=== PATIENT | male | born 1985 | race Caucasian/White ===

== ENCOUNTER 2023-04-20 14:46 | Inpatient (IN) | payer BC, SELFPAY ==
--- NOTE | 2023-04-20 14:50 | XR_ITS ---
WS: [id number] Exam: XR chest 1V portable [id number] Date/Time of Exam: 04/20/2023 2:58 PM Reason For Exam: fever No priors. There is consolidating pneumonia in the middle lobe of the RIGHT lung. The LEFT lung is clear. No ple ural effusions or pneumothorax. Normal cardiomediastinal silhouette. IMPRESSION: 1. Consolidating pneumonia of the RIGHT middle lobe.
[2023-04-20 15:09] VITALS: BP 94/63; PULSE 122; RESP 28; TEMP 39.3; O2SAT 98; BMI 24.3
[2023-04-20 15:33] VITALS: O2SAT 97
[2023-04-20 15:35] VITALS: BP 109/63; PULSE 114; RESP 24; O2SAT 97
--- NOTE | 2023-04-20 15:37 | ED_ITS ---
HPI - COVID 2 General: Chief Complaint: COVID symptoms Stated Complaint: Cough , Fever, weakness Time Seen by Provider: 04/20/23 15:32 Source: patient Mode of arrival: ambulatory Limitations: no limitations History of Present Illness: 38-year-old male states that he had coug h congestion along with shortness of breath and fevers over the last 2 to 3 days. States it is worsening he states he feel like he cannot breathe today denies any vomiting or diarrhea no known sick contacts. He is a smoker. COVID 19 common symptoms: positive fever(s), non-productive cough, dyspnea and body aches; negative chills, headache(s), throat pain, nausea, vomiting or diarrhea COVID 19 other sytmptoms: negative chest pain COVID Results: 2 SARS-CoV-2 Antigen (Rapid) negative (Negative) 04/20/23 15:35 Review of Systems 2 Const: Reports: fever(s) and body aches; Denies: chills or change in appetite ENMT: Denies: throat pain or dental pain Card: Denies: chest pain Resp: Reports: dyspnea and non-productive cough GI: Denies: abdominal pain, nausea, vomiting or diarrhea Musc: Denies: neck pain or back pain Skin/Breast: Denies: rash Neuro: Denies: headache(s) Physical Exam 2 Const: COMMON NORMALS: patient oriented x3 GENERAL APPEARANCE: ill appearing HENMT: COMMON NORMALS: normocephalic and atraumatic HEAD & SCALP: n ormocephalic and atraumatic Neck/C-Spine: COMMON NORMALS: full ROM and supple Chest: COMMONS NORMALS: normal inspection of the chest and normal palpation of entire chest wall Resp: COMMON NORMALS: No retractions EFFORT & INSPECTION: Yes tachypneic and Yes respiratory distress AUSCULTATION: crackles Laterality: right Cardio: COMMON NORMALS: regular rhythm and No murmurs present (Cardio) R ATE: tachycardic RHYTHM: regular rhythm GI: COMMON NORMALS: Normal to inspection, nondistended, normoactive bowel sounds present, Soft to palpation, non-tender and no masses PALPATION: Yes Soft to palpation Extremity: COMMON NORMALS: normal to inspection and full ROM Neuro: COMMON NORMALS: patient oriented x3, moves all extremities and no focal motor deficits Psych: COMMON NORMALS: mental status grossly normal, Normal thought process present and cooperative THOUGHT PROCESS: Normal thought process present Skin: COMMON NORMALS: no rashes or lesions noted and no wounds GENERAL SKIN EXAM: no rashes or lesions noted Course 2 Vital Signs: Vital signs: Vital Signs Temperature 102.7 F H 04/20/23 15:09 Pulse Rate 114 H 04/20/23 15:35 Respiratory Rate 24 H 04/20/23 15:35 Blood Pressure 109/63 04/20/23 15:35 Pulse Oximetry 97 04/20/23 15:35 Oxygen Delivery Me thod Room Air 04/20/23 15:35 MDM - COVID Medical Decision Making Patient presents here with pneumonia he is febrile here as well with an elevated white count. Did give patient IV fluids start him on IV antibiotics lactate here was normal spoke to hospitalist will admit at this time. Medical Records I reviewed the patient's medical records. Lab Data I reviewed the patient's lab results. 04/20/23 15:43 04/20/23 15:43 Laboratory Results WBC 22.97 10^3/uL (3.29-11.43) H 04/20/23 15:43 RBC 4.62 10^6/uL (3.85-5.65) 04/20/23 15:43 Hgb 14.30 g/dL (11.27-16.99) 04/20/23 15:43 Hct 40.2 % (37-53) 04/20/23 15:43 MCV 87.0 fl (82-101) 04/20/23 15:43 MCH 31.0 pg (27-33) 04/20/23 15:43 MCHC 35.6 g/dL (30-55) 04/20/23 15:43 RDW 12.4 % (12.1-15.1) 04/20/23 15:43 Plt Count 258 10^3/cmm (157-399) 04/20/23 15:43 MPV 11.0 fL (7.4-10.4) H 04/20/23 15:43 Neut % (Auto) 89.1 % 04/20/23 15:43 Lymph % (Auto) 3.2 % 04/20/23 15:43 [place] % (Auto) 6.2 % 04/20/23 15:43 Eos % (Auto) 0.0 % 04/20/23 15:43 Baso % (Auto) 0.3 % 04/20/23 15:43 Neut # (Auto) 20.43 10^3/uL (1.8-7.7) H 04/20/23 15:43 Lymph # (Auto) 0.7 10^3/uL (0.8-4.8) L 04/20/23 15:43 [place] # (Auto) 1.4 10^3/uL (0.2-0.9) H 04/20/23 15:43 Eos # (Auto) 0.0 10^3/uL (0.0-0.8) 04/20/23 15:43 Baso # (Auto) 0.1 10^3/uL (0.0-0.1) 04/20/23 15:43 Nucleated RBC % (auto) 0 % 04/20/23 15:43 Nucleated RBCs # 0.0 /100WBC 04/20/23 15:43 Sodium 131 mmol/L (136-145) L 04/20/23 15:43 Potassium 3.7 mmol/L (3.5-5.1) 04/20/23 15:43 Chloride 95 mmol/L (98-107) L 04/20/23 15:43 Carbon Dioxide 21 mmol/L (22-29) L 04/20/23 15:43 Anion Gap 18.7 (5-19) 04/20/23 15:43 BUN 27 mg/dL (6-20) H 04/20/23 15:43 Creatinine 1.0 mg/dL (0.7-1.2) 04/20/23 15:43 GFR Calculation 84.5 mL/min (90-130) L 04/20/23 15:43 Glucose 133 mg/dL (65-115) H 04/20/23 15:43 Calculated Osmolality 279 mOsm/kg (285-295) L 04/20/23 15:43 Lactic Acid 1.7 mmol/L (0.5-2.2) 04/20/23 15:43 Calcium 9.1 mg/dL (8.5-10.5) 04/20/23 15:43 Total Bilirubin 0.9 mg/dL (0.15-1.2) 04/20/23 15:43 AST 17 U/L (0-40) 04/20/23 15:43 ALT 18 U/L (0-41) 04/20/23 15:43 Alkaline Phosphatase 123 U/L (40-130) 04/20/23 15:43 Total Protein 7.2 g/dL (6.6-8.7) 04/20/23 15:43 Albumin 3.5 g/dL (3.5-5.2) 04/20/23 15:43 Globulin 3.7 g/dL (1.3-4.6) 04/20/23 15:43 Influenza Type A Ag negative (Negative) 04/20/23 15:35 Influenza Type B Ag negative (Negative) 04/20/23 15:35 SARS-CoV-2 Ag (Rapid) negative (Negative) 04/20/23 15:35 2 SARS-CoV-2 Antigen (Rapid) negative (Negative) 04/20/23 15:35 All radiology interpretation(s) finalized by discharge Discharge Plan Discharge Patient Disposition: Admitted As Inpatient Clinical Impression: Pneumonia Condition: Stable Coding Level of Care Code ED Despatching And Receiving Clerk for Jose Kay
--- NOTE | 2023-04-20 15:43 | PC.NURSE ---
Pt placed on bedside cardiac monitor technician
[2023-04-20 15:55] LABS: Basophils # 0.1 10^3/uL (0.0-0.1); Basophils % 0.3 %; Hematocrit 40.2 % (37-53); Lymphocytes # 0.7 10^3/uL (0.8-4.8); Lymphocytes % 3.2 %; Mean Corpuscular HGB Conc 35.6 g/dL (30-55); Monocytes # 1.4 10^3/uL (0.2-0.9); Monocytes % 6.2 %; Neutrophils # 20.43 10^3/uL (1.8-7.7); Neutrophils % 89.1 %; Nucleated Red Blood Cells % 0 %; Platelet Count 258 10^3/cmm (157-399); Red Blood Count 4.62 10^6/uL (3.85-5.65); Red Cell Distribution Width 12.4 % (12.1-15.1); White Blood Count 22.97 10^3/uL (3.29-11.43)
[2023-04-20] MEDS: sodium chloride 0.9% 2,245.29 ML 2245.29 ML IV (15:56)
[2023-04-20] MEDS: acetaminophen 500 mg Tablet 1000 MG PO (15:56)
[2023-04-20] MEDS: levofloxacin-dextrose 5 % 750 MG/150 ML PREMIX 100 MG IV (15:57)
[2023-04-20 16:12] LABS: Alanine Aminotransferase 18 U/L (0-41); Albumin Level 3.5 g/dL (3.5-5.2); Alkaline Phosphatase 123 U/L (40-130); Anion Gap 18.7 (5-19); Aspartate Amino Transferase 17 U/L (0-40); Blood Urea Nitrogen 27 mg/dL (6-20); Calcium 9.1 mg/dL (8.5-10.5); Carbon Dioxide 21 mmol/L (22-29); Chloride 95 mmol/L (98-107); Globulin 3.7 g/dL (1.3-4.6); Glomerular Filtration Rate 84.5 mL/min (90-130); Glucose 133 mg/dL (65-115); Lactic Sepsis W/Reflex 1.7 mmol/L (0.5-2.2); Osmolality Calculated 279 mOsm/kg (285-295); Potassium 3.7 mmol/L (3.5-5.1); Sodium 131 mmol/L (136-145); Total Bilirubin 0.9 mg/dL (0.15-1.2); Total Protein 7.2 g/dL (6.6-8.7)
[2023-04-20 16:15] LABS: Influenza A by IFA negative (Negative); Influenza B by IFA negative (Negative)
[2023-04-20 16:16] LABS: SARS Covid-2 Antigen negative (Negative)
[2023-04-20 17:55] LABS: Lactic Sepsis W/Reflex 1.3 mmol/L (0.5-2.2)
[2023-04-20 18:00] LABS: Procalcitonin 3.83 ng/mL (0-0.5)
--- NOTE | 2023-04-20 18:25 | PM.HP ---
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 Patient meets SIRS criteria for tachypnea tachycardia leukocytosis, lactic acid normal, Review of Systems Const: Reports: fever(s), chills and fatigue Eyes: Denies: change in vision ENMT: Denies: throat pain Card: Denies: chest pain Resp: Reports: dyspnea GI: Denies: abdominal pain : Denies: flank pain Musc: Denies: neck pain Skin/Breast: Denies: rash Neuro: Denies: headache(s) Psych: Reports: anxiety Medications/Allergies Allergies Allergy/AdvReac Type Severity Reaction Status Date / Time Penicillins Allergy ALGY-Anaphy Verified 04/20/23 15:08 laxis Vitals/I&O/Wt Last Vital Signs Temp 102.7 F H 04/20/23 15:09 Pulse 114 H 04/20/23 15:35 Resp 24 H 04/20/23 15:35 BP 109/63 04/20/23 15:35 Pulse Ox 97 04/20/23 15:35 O2 Del Method Room Air 04/20/23 15:35 Weight last 48 hrs Weight 74.843 kg Physical Exam Narrative: Awake and alert GCS 15 Currently on room air Experiencing rigors and chills Nonfocal neuroexam No audible stridor or wheezing No active chest pain S1, S2 Pleasant cooperative Data 04/20/23 15:43 04/20/23 15:43 A&P Assessment and plan (1) Pneumonia: Qualifiers: Laterality: left Lung location: lower lobe of lung Pneumonia type: due to unspecified organism Qualified Code(s): J18.9 - Pneumonia, unspecified organism Plan Sepsis with pneumonia Fever at home SIRS criteria met with tachypnea tachycardia leukocytosis lactic acid normal Continue IV fluids 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
[2023-04-20 18:38] VITALS: BP 116/61; TEMP 36.8
[2023-04-20 19:40] VITALS: BP 97/65; PULSE 82; RESP 18; TEMP 36.7; O2SAT 98
[2023-04-20] MEDS: sodium chloride 0.9% 1,000 ML 75 ML IV (20:14)
[2023-04-20] MEDS: ibuprofen 200 mg Tablet 400 MG PO (20:15)
[2023-04-20 20:16] LABS: HIV 1 & 2 Antibody Non-Reactive (Non-Reactiv); HIV 1 & 2 Antigen Non-Reactive (Non-Reactiv)
[2023-04-20 21:08] VITALS: BMI 26.7
[2023-04-20 21:14] LABS: Hepatitis A Antibody IgM Non-Reactive (Nonreactive); Hepatitis B Core AB, Total Reactive (Nonreactive); Hepatitis B Surface Antigen Non-Reactive (Nonreactive); Hepatitis C Virus Antibody Non-Reactive (Nonreactive)
[2023-04-21] VITALS (10 sets, daily range): BP systolic 97–108; BP diastolic 62–68; PULSE 73–96; RESP 16–21; TEMP 36.7–37.7; O2SAT 94–99; BMI 26.7
[2023-04-21 00:43] LABS: Adenovirus Not Detected (NOT DETECT); Chlamydia Pneumoniae Not Detected (NOT DETECT); Coronavirus 229E,HKU1,NL63,OC4 Not Detected (NOT DETECT); Human Metapneumovirus Not Detected (NOT DETECT); Human Rhinovirus/Enterovirus Not Detected (NOT DETECT); Influenza A Not Detected (NOT DETECT); Influenza A H1 Not Detected (NOT DETECT); Influenza A H1-2009 Not Detected (NOT DETECT); Influenza A H3 Not Detected (NOT DETECT); Influenza B Not Detected (NOT DETECT); Mycoplasma Pneumoniae Not Detected (NOT DETECT); Parainfluenza Virus Type 1 Not Detected (NOT DETECT); Parainfluenza Virus Type 2 Not Detected (NOT DETECT); Parainfluenza Virus Type 3 Not Detected (NOT DETECT); Parainfluenza Virus Type 4 Not Detected (NOT DETECT); Respiratory Syncytial Virus A Not Detected (NOT DETECT); Respiratory Syncytial Virus B Not Detected (NOT DETECT); SARS-COV-2 Not Detected (NOT DETECT)
[2023-04-21] MEDS: acetaminophen 325 mg Tablet 650 MG PO (01:03)
[2023-04-21] MEDS: hyDROXYzine 25 mg Capsule PO (01:03)
[2023-04-21] MEDS: morphine 4 mg/mL SDV 1 mL 1 MG IVP ×2 (05:22→22:18)
[2023-04-21 05:35] LABS: Basophils % 0.2 %; Eosinophils % 0.1 %; Hematocrit 37.7 % (37-53); Lymphocytes # 1.6 10^3/uL (0.8-4.8); Mean Corpuscular HGB Conc 34.2 g/dL (30-55); Mean Corpuscular Hemoglobin 30.6 pg (27-33); Mean Corpuscular Volume 89.5 fl (82-101); Mean Platelet Volume 10.4 fL (7.4-10.4); Monocytes # 1.8 10^3/uL (0.2-0.9); Monocytes % 9.2 %; Neutrophils # 16.11 10^3/uL (1.8-7.7); Neutrophils % 81.6 %; Nucleated Red Blood Cells % 0 %; Platelet Count 252 10^3/cmm (157-399); Red Blood Count 4.21 10^6/uL (3.85-5.65); Red Cell Distribution Width 12.8 % (12.1-15.1); White Blood Count 19.75 10^3/uL (3.29-11.43)
[2023-04-21 05:52] LABS: Alanine Aminotransferase 18 U/L (0-41); Albumin Level 2.8 g/dL (3.5-5.2); Alkaline Phosphatase 106 U/L (40-130); Anion Gap 16.6 (5-19); Aspartate Amino Transferase 19 U/L (0-40); Blood Urea Nitrogen 15 mg/dL (6-20); Calcium 8.1 mg/dL (8.5-10.5); Carbon Dioxide 20 mmol/L (22-29); Chloride 107 mmol/L (98-107); Glomerular Filtration Rate 188.1 mL/min (90-130); Glucose 98 mg/dL (65-115); Magnesium 2.5 mg/dL (1.7-2.3); Osmolality Calculated 291 mOsm/kg (285-295); Potassium 3.6 mmol/L (3.5-5.1); Sodium 140 mmol/L (136-145); Total Bilirubin 0.4 mg/dL (0.15-1.2); Total Protein 5.8 g/dL (6.6-8.7)
--- NOTE | 2023-04-21 08:00 | ECG_ITS ---
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 Measurements Intervals [place] Rate: 95 P: 21 GA: 141 QRS: 45 QRSD: 86 T: 19 QT: 327 QTc: 412 Interpretive Statements SINUS RHYTHM No previous ECG available for comparison Electronically Signed On 04-21-2023 14:19:05 RACK CLEANER by Carlitos Rice M.D. [id number]
[2023-04-21] MEDS: sodium chloride 0.9% 1,000 ML 75 ML IV (08:14)
[2023-04-21] MEDS: doxycycline 100 mg Tablet PO ×2 (08:14→17:25)
[2023-04-21] MEDS: levofloxacin-dextrose 5 % 750 MG/150 ML PREMIX 100 MG IV (08:15)
[2023-04-21 08:20] LABS: Procalcitonin 2.88 ng/mL (0-0.5)
[2023-04-21] MEDS: ibuprofen 200 mg Tablet 400 MG PO (12:08)
--- NOTE | 2023-04-21 14:53 | P.PN_ITS ---
Subjective 2 Subjective: Seen today. Appears toxic and ill. Vitals/I&O/Wt Last Vital Signs Temp 99.3 F 04/21/23 12:00 Pulse 91 04/21/23 12:00 Resp 16 04/21/23 12:00 BP 97/62 04/21/23 12:00 Pulse Ox 96 04/21/23 12:00 O2 Del Method Room Air 04/21/23 09:58 04/20/23 04/21/23 04/21/23 22:59 06:59 14:59 Intake Total 2895.29 / 2895.29 1410 / 1410 Output Total 400 / 400 Balance 2895.29 / 2895.29 -400 / 2495.29 1410 / 1410 Weight last 48 hrs Weight 82.1 kg Weight 82.1 kg Weight 74.843 kg Physical Exam 2 Narrative: Awake and alert GCS 15 Currently on room air Experiencing rigors and chills Nonfocal neuroexam No audible stridor or wheezing No active chest pain S1, S2 Pleasant cooperative Appears ill and toxic Lungs have sporadic rhonchi bilaterally Data 04/21/23 05:18 04/21/23 05:18 A&P Assessment and plan (1) Pneumonia: Qualifiers: Laterality: left Lung location: lower lobe of lung Pneumonia type: due to unspecified organism Qualified Code(s): J18.9 - Pneumonia, unspecified organism Plan Sepsis with pneumonia Fever at home SIRS criteria met with tachypnea tachycardia leukocytosis lactic acid normal Continue IV fluids 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 Continue to treat patient in hospital with IV antibiotics ? Procalcitonin 2.88. Will trend I expect patient to stay in the hospital at least another 48 hours. Patient to remain on IV antibiotics until procalcitonin down to normal. Full code Regular diet Attestations 2 Medical Necessity Statement*: Anticipating more than 2 midnights for management of sepsis related to pneumonia Diagnoses Pneumonia J18.9 Laterality: left Lung location: lower lobe of lung Pneumonia type: due to unspecified organism
[2023-04-21] MEDS: sodium chloride 0.9% 1,000 ML 999 ML IV (16:46)
[2023-04-21] MEDS: ketorolac 30 mg/mL INJ 15 MG IVP (16:52)
[2023-04-21] MEDS: sodium chloride 0.9% 1,000 ML 125 ML IV (22:17)
[2023-04-22] VITALS (8 sets, daily range): BP systolic 115–134; BP diastolic 69–84; PULSE 46–89; RESP 15–20; TEMP 36.4–37.1; O2SAT 96–100
[2023-04-22] MEDS: hyDROXYzine 25 mg Capsule PO (01:15)
[2023-04-22 05:44] LABS: Basophils # 0.1 10^3/uL (0.0-0.1); Basophils % 0.6 %; Eosinophils # 0.3 10^3/uL (0.0-0.8); Eosinophils % 1.9 %; Hematocrit 36.7 % (37-53); Lymphocytes # 2.6 10^3/uL (0.8-4.8); Lymphocytes % 19.3 %; Mean Corpuscular HGB Conc 33.8 g/dL (30-55); Mean Corpuscular Hemoglobin 30.4 pg (27-33); Mean Platelet Volume 10.3 fL (7.4-10.4); Monocytes # 1.3 10^3/uL (0.2-0.9); Monocytes % 9.4 %; Neutrophils # 8.65 10^3/uL (1.8-7.7); Neutrophils % 64.7 %; Nucleated Red Blood Cells % 0 %; Platelet Count 304 10^3/cmm (157-399); Red Blood Count 4.08 10^6/uL (3.85-5.65); Red Cell Distribution Width 13.2 % (12.1-15.1); White Blood Count 13.39 10^3/uL (3.29-11.43)
[2023-04-22 06:13] LABS: Procalcitonin 1.44 ng/mL (0-0.5)
[2023-04-22 06:24] LABS: Anion Gap 13.6 (5-19); Blood Urea Nitrogen 11 mg/dL (6-20); Calcium 7.9 mg/dL (8.5-10.5); Carbon Dioxide 20 mmol/L (22-29); Chloride 110 mmol/L (98-107); Glomerular Filtration Rate 188.1 mL/min (90-130); Glucose 98 mg/dL (65-115); Osmolality Calculated 289 mOsm/kg (285-295); Potassium 3.6 mmol/L (3.5-5.1); Sodium 140 mmol/L (136-145)
[2023-04-22] MEDS: ketorolac 30 mg/mL INJ 15 MG IVP ×2 (06:34→13:54)
[2023-04-22] MEDS: sodium chloride 0.9% 1,000 ML 125 ML IV (06:34)
[2023-04-22] MEDS: levofloxacin-dextrose 5 % 750 MG/150 ML PREMIX 100 MG IV (08:50)
[2023-04-22] MEDS: doxycycline 100 mg Tablet PO ×2 (08:50→17:11)
--- NOTE | 2023-04-22 13:26 | P.PN_ITS ---
Subjective 2 Subjective: Seen today. No acute events overnight. Procalcitonin down to 1.44. He complains of left ear pain today. Vitals/I&O/Wt Last Vital Signs Temp 98.3 F 04/22/23 12:00 Pulse 61 04/22/23 12:00 Resp 15 04/22/23 12:00 BP 115/73 04/22/23 12:00 Pulse Ox 97 04/22/23 12:00 O2 Del Method Room Air 04/22/23 09:17 04/21/23 04/22/23 04/22/23 22:59 06:59 14:59 Intake Total 2480 / 3890 1480 / 5370 390 / 390 Output Total 400 / 400 Balance 2080 / 3490 1480 / 4970 390 / 390 Weight last 48 hrs Weight 82.1 kg Weight 82.1 kg Weight 82.1 kg Weight 74.843 kg Physical Exam 2 Narrative: Awake and alert GCS 15 Currently on room air Experiencing left ear pain today. 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 Check respiratory panel?negative Check HIV and hepatitis panel?negative Patient's was recent in the hospital for hepatic encephalopathy Respiratory panel negative. Continue to treat patient in hospital with IV antibiotics ? Procalcitonin 1.44 today. Will trend I expect patient to stay in the hospital at least another 48 hours. Patient to remain on IV antibiotics until procalcitonin down to normal. Full code Regular diet Attestations 2 Medical Necessity Statement*: Anticipating more than 2 midnights for management of sepsis related to pneumonia Diagnoses Pneumonia J18.9 Laterality: left Lung location: lower lobe of lung Pneumonia type: due to unspecified organism
[2023-04-22] MEDS: meclizine 25 mg tablet PO ×2 (13:47→22:24)
[2023-04-22] MEDS: morphine 4 mg/mL SDV 1 mL 1 MG IVP (22:24)
[2023-04-23] VITALS: BP 138/79; PULSE 50; RESP 15; TEMP 37.4; O2SAT 96
[2023-04-23] MEDS: ketorolac 30 mg/mL INJ 15 MG IVP (03:01)
[2023-04-23 04:00] VITALS: BP 126/75; PULSE 50; RESP 15; TEMP 37.2; O2SAT 95
[2023-04-23 05:04] LABS: Basophils # 0.1 10^3/uL (0.0-0.1); Basophils % 0.8 %; Eosinophils # 0.5 10^3/uL (0.0-0.8); Eosinophils % 4.4 %; Hematocrit 37.7 % (37-53); Lymphocytes % 25.5 %; Mean Corpuscular HGB Conc 34.2 g/dL (30-55); Mean Corpuscular Volume 87.7 fl (82-101); Mean Platelet Volume 10.1 fL (7.4-10.4); Monocytes # 0.8 10^3/uL (0.2-0.9); Monocytes % 6.3 %; Nucleated Red Blood Cells % 0 %; Platelet Count 389 10^3/cmm (157-399); Red Cell Distribution Width 12.9 % (12.1-15.1); White Blood Count 11.91 10^3/uL (3.29-11.43)
[2023-04-23 05:25] LABS: Anion Gap 13.6 (5-19); Blood Urea Nitrogen 12 mg/dL (6-20); Calcium 8.6 mg/dL (8.5-10.5); Carbon Dioxide 22 mmol/L (22-29); Chloride 108 mmol/L (98-107); Glomerular Filtration Rate 188.1 mL/min (90-130); Glucose 95 mg/dL (65-115); Osmolality Calculated 290 mOsm/kg (285-295); Potassium 3.6 mmol/L (3.5-5.1); Sodium 140 mmol/L (136-145)
[2023-04-23 05:33] LABS: Procalcitonin 0.93 ng/mL (0-0.5)
[2023-04-23 05:36] LABS: Slide Review Slide Review Perform
[2023-04-23 06:00] VITALS: BMI 26.7
[2023-04-23 08:00] VITALS: BP 150/80; PULSE 50; RESP 16; TEMP 36.4; O2SAT 96
[2023-04-23] MEDS: doxycycline 100 mg Tablet PO (08:50)
[2023-04-23] MEDS: levofloxacin-dextrose 5 % 750 MG/150 ML PREMIX 100 MG IV (08:50)
[2023-04-23 09:22] VITALS: PULSE 70; RESP 16; O2SAT 96
--- NOTE | 2023-04-23 10:09 | PM.DCS ---
Discharge Providers Date of Admission: 04/20/23 18:06 Date of Discharge: April 23, 2023 Attending Provider at Admission: Angelica Dupont MD Attending Provider at Discharge: Angelica Dupont MD Diagnoses at Discharge Discharge Diagnosis (1) Pneumonia: Status: Acute Qualifiers: Laterality: left Lung location: lower lobe of lung Pneumonia type: due to unspecified organism Qualified Code(s): J18.9 - Pneumonia, unspecified organism Reason for Visit Reason for Visit: Cough , Fever, weakness Hospital Course Hospital Course Admitted for right middle lobe pneumonia. Placed on IV levofloxacin during hospital stay. Patient improved and will be sent home today to complete 14-day course. Will give him chest x-ray in 6 weeks to reassess. Follow-up with primary care physician Physical Exam Narrative: Awake and alert GCS 15 Currently on room air Experiencing left ear pain today. Nonfocal neuroexam No active chest pain S1, S2 Pleasant cooperative Appears ill and toxic Lungs have sporadic rhonchi bilaterally Discharge Data Studies Completed and Pending Completed Studies During Hospitalization Category Date Time Status CXRP [XR chest 1V portable [id number]] Stat Exams 04/20/23 14:50 Completed Pending at discharge Category Date Time Status Bacterial Antigen Stat Lab 04/23/23 08:48 Received Blood Cultures ([facility]) Routine Lab 04/20/23 15:43 Received Blood Cultures ([facility]) Routine Lab 04/20/23 15:49 Received Blood Cultures ([facility]) Routine Lab 04/20/23 17:16 Received Blood Cultures ([facility]) Routine Lab 04/20/23 17:23 Received Sputum Culture and Gram Stain Stat Lab 04/23/23 08:49 Received Laboratory Results WBC 11.91 10^3/uL (3.29-11.43) H 04/23/23 04:47 RBC 4.30 10^6/uL (3.85-5.65) 04/23/23 04:47 Hgb 12.90 g/dL (11.27-16.99) 04/23/23 04:47 Hct 37.7 % (37-53) 04/23/23 04:47 MCV 87.7 fl (82-101) 04/23/23 04:47 MCH 30.0 pg (27-33) 04/23/23 04:47 MCHC 34.2 g/dL (30-55) 04/23/23 04:47 RDW 12.9 % (12.1-15.1) 04/23/23 04:47 Plt Count 389 10^3/cmm (157-399) 04/23/23 04:47 MPV 10.1 fL (7.4-10.4) 04/23/23 04:47 Neut % (Auto) 57.0 % 04/23/23 04:47 Lymph % (Auto) 25.5 % 04/23/23 04:47 [place] % (Auto) 6.3 % 04/23/23 04:47 Eos % (Auto) 4.4 % 04/23/23 04:47 Baso % (Auto) 0.8 % 04/23/23 04:47 Neut # (Auto) 6.80 10^3/uL (1.8-7.7) 04/23/23 04:47 Lymph # (Auto) 3.0 10^3/uL (0.8-4.8) 04/23/23 04:47 [place] # (Auto) 0.8 10^3/uL (0.2-0.9) 04/23/23 04:47 Eos # (Auto) 0.5 10^3/uL (0.0-0.8) 04/23/23 04:47 Baso # (Auto) 0.1 10^3/uL (0.0-0.1) 04/23/23 04:47 Nucleated RBC % (auto) 0 % 04/23/23 04:47 Nucleated RBCs # 0.0 /100WBC 04/23/23 04:47 Sodium 140 mmol/L (136-145) 04/23/23 04:47 Potassium 3.6 mmol/L (3.5-5.1) 04/23/23 04:47 Chloride 108 mmol/L (98-107) H 04/23/23 04:47 Carbon Dioxide 22 mmol/L (22-29) 04/23/23 04:47 Anion Gap 13.6 (5-19) 04/23/23 04:47 BUN 12 mg/dL (6-20) 04/23/23 04:47 Creatinine 0.5 mg/dL (0.7-1.2) L 04/23/23 04:47 GFR Calculation 188.1 mL/min (90-130) H 04/23/23 04:47 Glucose 95 mg/dL (65-115) 04/23/23 04:47 Calculated Osmolality 290 mOsm/kg (285-295) 04/23/23 04:47 Lactic Acid 1.3 mmol/L (0.5-2.2) 04/20/23 17:16 Calcium 8.6 mg/dL (8.5-10.5) 04/23/23 04:47 Magnesium 2.5 mg/dL (1.7-2.3) H 04/21/23 05:18 Total Bilirubin 0.4 mg/dL (0.15-1.2) 04/21/23 05:18 AST 19 U/L (0-40) 04/21/23 05:18 ALT 18 U/L (0-41) 04/21/23 05:18 Alkaline Phosphatase 106 U/L (40-130) 04/21/23 05:18 Total Protein 5.8 g/dL (6.6-8.7) L 04/21/23 05:18 Albumin 2.8 g/dL (3.5-5.2) L 04/21/23 05:18 Globulin 3.0 g/dL (1.3-4.6) 04/21/23 05:18 Procalcitonin 0.93 ng/mL (0-0.5) H 04/23/23 04:47 Adenovirus (PCR) Not detected (NOT DETECT) 04/20/23 20:30 C. pneumoniae DNA (PCR) Not detected (NOT DETECT) 04/20/23 20:30 Coronavirus 229E (PCR) Not detected (NOT DETECT) 04/20/23 20:30 Hepatitis A IgM Ab Non-reactive (Nonreactive) 04/20/23 15:43 Hep Bs Antigen Non-reactive (Nonreactive) 04/20/23 15:43 Hep Bs Antibody 820.0 (11.5-1000) 04/20/23 15:43 Hep B Core Total Ab Reactive (Nonreactive) H 04/20/23 15:43 Hepatitis C Antibody Non-reactive (Nonreactive) 04/20/23 15:43 HIV 1&2 Ab & HIV 1 Ag Non-reactive (Non-Reactiv) 04/20/23 15:43 HIV 1&2 Antibody Non-reactive (Non-Reactiv) 04/20/23 15:43 Human Metapneumovir PCR Not detected (NOT DETECT) 04/20/23 20:30 Influenza A (H1) PCR Not detected (NOT DETECT) 04/20/23 20:30 Influ A (H1/09) PCR Not detected (NOT DETECT) 04/20/23 20:30 Influenza A (H3) PCR Not detected (NOT DETECT) 04/20/23 20:30 Influenza Type A Ag negative (Negative) 04/20/23 15:35 Influenza Type A (PCR) Not detected (NOT DETECT) 04/20/23 20:30 Influenza Type B Ag negative (Negative) 04/20/23 15:35 Influenza Type B (PCR) Not detected (NOT DETECT) 04/20/23 20:30 M. pneumoniae (PCR) Not detected (NOT DETECT) 04/20/23 20:30 Parainfluenza 1 (PCR) Not detected (NOT DETECT) 04/20/23 20:30 Parainfluenza 2 (PCR) Not detected (NOT DETECT) 04/20/23 20:30 Parainfluenza 3 (PCR) Not detected (NOT DETECT) 04/20/23 20:30 Parainfluenza 4 (PCR) Not detected (NOT DETECT) 04/20/23 20:30 RSV Type A (PCR) Not detected (NOT DETECT) 04/20/23 20:30 RSV Type B (PCR) Not detected (NOT DETECT) 04/20/23 20:30 Entero/Rhino (PCR) Not detected (NOT DETECT) 04/20/23 20:30 SARS-CoV-2 (PCR) Not detected (NOT DETECT) 04/20/23 20:30 SARS-CoV-2 Ag (Rapid) negative (Negative) 04/20/23 15:35 Vitals Last Vital Signs Temp 97.6 F 04/23/23 08:00 Pulse 70 04/23/23 09:22 Resp 16 04/23/23 09:22 BP 150/80 04/23/23 08:00 Pulse Ox 96 04/23/23 09:22 O2 Del Method Room Air 04/23/23 09:22 Discharge Plan Discharge Patient Disposition: Home Condition: Stable Prescriptions: New levofloxacin 750 mg tablet 750 mg PO DAILY 12 Days Qty: 12 0RF Discharge Orders: Discharge Order (Routine); Ordered 04/23/23 Ordered By: Angelica Dupont Other Ambulatory Orders: XR chest 2V insp/exp [id number] (Routine) Timeframe: 6 Weeks Facility: [facility] - Location: Radiology [facility] Ordered By: Angelica Dupont Referrals: Leobardo Chin MD [Referring] - 04/28/23 9:30 am Discharge Diet: Regular Discharge Activity: Resume usual activity and Increase activity as tolerated Patient Instructions: Levofloxacin (By mouth), Pneumonia (GEN), Opioid Safety, Pneumonia Stoplight Discharge Attestations Time Spent in Discharge Care*: less than 30 min Quality Metrics Clinical Quality Measures [ No reported AMI, CVA or VTE this stay] Coding Level of Care Code 50364 Total time (in minutes) for Discharge: 20 Diagnoses Pneumonia J18.9 Laterality: left Lung location: lower lobe of lung Pneumonia type: due to unspecified organism
--- NOTE | 2023-04-23 10:17 | PC.CHAP ---
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 [] Patient/Family/Request visit [] Outpatient visit [] Follow-up visit [] Physician referral [] Code/Alert [x] Routine visit [] Staff referral [] Actively dying [] Patient sleeping [] Family support [] [] Out of room [] Palliative care [] [] Receiving care in room [] Pre-surgical visit [] Trauma [] Long length of stay [] ICU visit [] Other: Relational/Emotional Strength [x] Patient feels connected with others/family/visitors/staff [] Distress [] Loneliness/isolation [] Abandonment Spirituality of Patient [x] Person of Lia [] Attends Latter-Day of their Lia [x] Believes in Prayer [] Reads Bible or Scientologist materials [] There are Spiritual issues to be addressed Building Trades Instructor Interventions [x] Prayer [x] Active listening [] Non-anxious presence [x] Spiritual/emotional support [] Crisis/trauma care [] Spiritual counseling [] Bereavement support [] Provided bereavement packet [] Provided Bible/devotional materials [] Provided toy/stuffed animal, coloring book to patient or family member [] Provided Communion [] Anointing/[place] [] Salvation [x] Completed spiritual assessment [] Other: Impact on Illness or Injury [] Angry [] Fearful [] Anxious [] Often cries [] Exhaustion [] Unable to work [] Unable to attend gnosticist [] Unable to walk/stand [] Unable to read [] Unable to drive [] Unable to eat/drink [] Unable to sleep [] Unable to be with family [] Patient intubated [] Other: Summary Time spent with patient 5 min
[2023-04-23 16:27] VITALS: PULSE 70; RESP 16; O2SAT 96
== END 2023-04-23 16:28 | disposition home or self-care (01) | DRG 871 ==
LOC: ER 16:34 → MEDSURG 18:13
PROVIDERS: Internal Medicine; Admitting Provider Internal Medicine; Emergency Provider Emergency Medicine; Visit Provider Internal Medicine
DX: A41.9 Sepsis, unspecified organism (principal); J18.9 Pneumonia, unspecified organism; F17.210 Nicotine dependence, cigarettes, uncomplicated
CPT/HCPCS: 36415; 71045; 80048; 80053; 83605; 83735; 84145; 85025; 86403; 86705; 86706; 86709; 86803; 87040; 87070; 87205; 87340; 87426; 87486; 87581; 87633; 87804; 87806; 93005; 94664; 96365; 96366; 99285; J1885; J1956; J2270; J7030; J8597

== ENCOUNTER 2023-04-28 11:01 | Outpatient (CLI) | payer BC, SELFPAY ==
--- NOTE | 2023-04-28 11:07 | XR_ITS ---
WS: [id number] XR chest 2V insp/exp [id number] REASON FOR EXAM: rml pna FINDINGS: Compared to the examination of 04/20/2023, the right lower lung opacity is resolving. Significant ill- defined lung opacities remain. Oblique linear opacities in the left lower lung likely represent atelectasis. No new findings. IMPRESSION: Partially resolved presumed right lower lobe pneumonitis.
== END 2023-04-28 11:02 | disposition home or self-care (01) ==
LOC: RAD 11:02
PROVIDERS: Visit Provider Nurse Practitioner Family
DX: J18.9 Pneumonia, unspecified organism (principal)
CPT/HCPCS: 71046